=== PATIENT | female | born 1990 | race Two or more races ===

== ENCOUNTER 2020-02-16 17:29 | Emergency (ER) | payer SELFPAY ==
[2020-02-16 17:44] VITALS: BMI 29.9
[2020-02-16] MEDS ORDERED: SODIUM CHLORIDE 1,000 ML IV STA (18:25)
[2020-02-16] MEDS ORDERED: METOCLOPRAMIDE HCL INJECTION 10 MG/2 ML VIAL IVPB ONE (18:25)
--- NOTE | 2020-02-16 18:30 | PDOC ---
History of Present Illness - General Chief Complaint: Lightheaded Stated Complaint: DIZZY Time Seen by Provider: 02/16/20 18:06 Past History - Medical History Allergies/Adverse Reactions: Allergies Allergy/AdvReac Type Severity Reaction Status Date / Time No Known Allergies Allergy Verified 02/16/20 17:40 Home Medications: Ambulatory Orders Amox-Tr/K Cl [Augmentin - 875Mg Tablet] 1 tab PO BID #20 tablet 02/16/20 Fluticasone Prop 0.05% Nasal [Flonase -] 1 - 2 spray NS DAILY #1 spray.pump 02/16/20 Ibuprofen 600 mg PO Q6H #30 tablet 02/16/20 Meclizine HCl 25 mg PO TID #21 tablet 02/16/20 Oxymetazoline 0.05% Nasal Soln [Afrin -] 2 spray NS BID #1 bottle 02/16/20 COPD: No - Reproductive History Is Patient Now?: No - Immunization History Immunization Up to Date: No - Psycho-Social/Smoking History Smoking History: Never smoked Have you smoked in the past 12 months: No Information on smoking cessation initiated: No - Substance Abuse Hx (Audit-C & DAST Scrn) How often the patient has a drink containing alcohol: Never Score: In Men: 4 or > Positive; In Women: 3 or > Positive: 0 Screen Result (Pos requires Nsg. Audit-10AR): Negative In the last yr the pt used illegal drug/Rx for NonMed reason: No Score: Yes response is considered Positive: 0 Screen Result (Positive result requires Nsg. DAST-10): Negative Review of Systems - Review of Systems Able to Perform ROS?: Yes Comments:: 02/16/20 21:52 CONSTITUTIONAL: Absent: fever, chills, diaphoresis, generalized weakness, malaise, loss of a ppetite HEENT: Absent: rhinorrhea, nasal congestion, throat pain, throat swelling, difficulty swallowing, mouth swelling, ear pain, eye pain, visual Changes CARDIOVASCULAR: Absent: chest pain, loss of consciousness, palpitations, irregular heart rate, peripheral edema RESPIRATORY: Absent: cough, shortness of breath, dyspnea with exertion, orthopnea, wheezing, stridor, hemoptysis GASTROINTESTINAL: Absent: abdominal pain, abdominal distension, nausea, vomiting, diarrhea, constipation, melena, hematochezia GENITOURINARY: Absent: dysuria, frequency, urgency, hesitancy, hematuria, flank pain, genital pain MUSCULOSKELETAL: Absent: myalgia, arthralgia, joint swelling SKIN: Absent: rash, itching, pallor HEMATOLOGIC/IMMUNOLOGIC: Absent: easy bleeding, easy bruising, lymphadenopathy, frequent infections ENDOCRINE: Absent: unexplained weight gain, unexplained weight loss, heat intolerance, cold intolerance NEUROLOGIC: Absent: headache, focal weakness or paresthesias, dizziness, unsteady gait, seizure, mental status changes, bladder or bowel incontinence PSYCHIATRIC: Absent: anxiety, depression, suicidal or homicidal ideation, hallucinations. Is the patient limited Turkish proficient: No *Physical Exam - Vital Signs Last Vital Signs Temp Pulse Resp BP Pulse Ox 98.8 F 88 18 155/94 99 02/16/20 17:40 02/16/20 17:40 02/16/20 17:40 02/16/20 17:40 02/16/20 17:40 - Physical Exam 02/16/20 21:52 GENERAL: Well developed, well nourished. Awake and alert. No acute distress. HEENT: Normocephalic, atraumatic. PERRLA, EOMI. No conjunctival pallor. Sclera are non- icteric. Moist mucous membranes. Oropharynx is clear. NECK: Supple. Full ROM. No JVD. Carotid pulses 2+ and symmetric, without bruits. No thyromegaly. No lymphadenopathy. CARDIOVASCULAR: Regular rate and rhythm. No murmurs, rubs, or gallops. Distal pulses are 2+ and symmetric. PULMONARY: No evidence of respiratory distress. Lungs clear to auscultation bilaterally. No wheezing, rales or rhonchi. ABDOMINAL: Soft. Non-tender. Non-distended. No rebound or guarding. No organomegaly. Normoactive bowel sounds. MUSCULOSKELETAL Normal range of motion at all joints. No bony deformities or tenderness. No CVA tenderness. EXTREMITIES: No cyanosis. No clubbing. No edema. No calf tenderness. SKIN: Warm and dry. Normal capillary refill. No rashes. No jaundice. NEUROLOGICAL: Alert, awake, appropriate. Cranial nerves 2-12 intact. No deficits to light touch and temperature in face, upper extremities and lower extremities. No motor deficits in the in face, upper extremities and lower extremities. Normoreflexic in the upper and lower extremities. Normal speech. Toes are down-going bilaterally. Gait is normal without ataxia. PSYCHIATRIC: Cooperative. Good eye contact. Appropriate mood and affect. ED Treatment Course - LABORATORY CBC & Chemistry Diagram: 02/16/20 18:41 02/16/20 18:41 Discharge - Discharge Information Problems reviewed: Yes Clinical Impression/Diagnosis: Dizziness Sinusitis Qualifiers: Sinusitis location: unspecified location Chronicity: acute Recurrence: not specified as recurrent Qualified Code(s): J01.90 - Acute sinusitis, unspecified Condition: Stable Disposition: HOME - Admission No - Additional Discharge Information Prescriptions: Oxymetazoline 0.05% Nasal Soln [Afrin -] 2 spray NS BID #1 bottle Amox-Tr/K Cl [Augmentin - 875Mg Tablet] 1 tab PO BID #20 tablet Fluticasone Prop 0.05% Nasal [Flonase -] 1 - 2 spray NS DAILY #1 spray.pump Ibuprofen 600 mg PO Q6H #30 tablet Meclizine HCl 25 mg PO TID #21 tablet - Follow up/Referral Referrals: Joni Benson MD [Staff Physician] - - Patient Discharge Instructions Patient Printed Discharge Instructions: DI for Sinusitis, DI for Dizziness- Nonvertigo Additional Instructions: Your seen today for your dizziness and lightheadedness. Your CT scan shows that you have a sinus infection. This is most likely contributing to your pain and dizziness. Please take the antibiotics, Augmentin as directed. Finish the entire dose even if you feel better. Please take the Afrin for the next 2 days to help with decongestion. Do not use it past 2 days as this can cause rebound congestion. Please use the Flonase spray along with the Afrin spray to also help with decongestion. This is a nasal steroid. You may take the meclizine as needed for dizziness. Please follow-up with an ENT. A referral has been provided to you for further management of your symptoms. Return to the ER for worsening headache, dizziness, vomiting or if you have any changes in your symptoms. - Post Discharge Activity Work/Back to School Note: Back to Work
[2020-02-16] MEDS ORDERED: METOCLOPRAMIDE HCL INJECTION 10 MG/2 ML VIAL ONE (18:45)
[2020-02-16 19:32] LABS: BASO % 0.5 % (0-2.0); EOS % 3.1 % (0-4.5); HEMATOCRIT 44.5 % (32.4-45.2); HEMOGLOBIN 15.1 GM/dL (10.7-15.3); LYMPH % 31.2 % (8-40); MCH 29.4 pg (25.7-33.7); MCHC 33.8 g/dl (32.0-36.0); MEAN CELL VOLUME 86.9 fl (80-96); MEAN PLT VOLUME 9.3 fl (7.5-11.1); NEUT % 60.2 % (42.8-82.8); PLATELET COUNT 329 K/MM3 (134-434); RBC 5.12 M/mm3 (3.60-5.2); RDW 13.7 % (11.6-15.6); WHITE BLOOD COUNT 9.3 K/mm3 (4.0-10.0)
[2020-02-16 20:02] LABS: ALBUMIN 4.1 g/dl (3.4-5.0); BILIRUBIN,TOTAL 0.6 mg/dL (0.2-1); BLOOD UREA NITROGEN 11.5 mg/dL (7-18); CALCIUM 9.3 mg/dL (8.5-10.1); CREATININE 0.7 mg/dL (0.55-1.3); POTASSIUM 4.4 mmol/L (3.5-5.1); TOT PROT 8.6 g/dl (6.4-8.2)
[2020-02-16 20:08] LABS: URINE APPEARANCE CLEAR; URINE BILIRUBIN NEGATIVE (NEGATIVE); URINE COLOR YELLOW; URINE GLUCOSE (UA) NEGATIVE (NEGATIVE); URINE KETONE NEGATIVE (NEGATIVE); URINE LEUK ESTERASE NEGATIVE (NEGATIVE); URINE NITRITE NEGATIVE (NEGATIVE); URINE PROTEIN NEGATIVE (NEGATIVE); URINE UROBILINOGEN 0.2 mg/dL (0.2-1.0)
[2020-02-17 03:35] VITALS: BP 134/82; PULSE 80; TEMP 98.3
== END 2020-02-16 22:40 | disposition home or self-care (01) ==
LOC: JER 17:29
PROC: 3E033NZ Introduction of Analgesics, Hypnotics, Sedatives into Peripheral Vein, Percutaneous Approach (ICD-10-PCS; principal; 2020-02-16)
PROC: 3E033GC Introduction of Other Therapeutic Substance into Peripheral Vein, Percutaneous Approach (ICD-10-PCS; 2020-02-16)
PROC: 3E0337Z Introduction of Electrolytic and Water Balance Substance into Peripheral Vein, Percutaneous Approach (ICD-10-PCS; 2020-02-16)
DX: R42 Dizziness and giddiness (principal); J01.90 Acute sinusitis, unspecified
CPT/HCPCS: 36415; 70450-TC; 80053; 81003; 84703; 85025; 99285-25

== ENCOUNTER 2023-05-13 02:46 | Emergency (ER) | payer OTHER ==
[2023-05-13 03:03] VITALS: TEMP 98.5; BMI 28.3
[2023-05-13] MEDS ORDERED: DEXAMETHASONE LIQUID 0.5 MG/5 ML PO ONE (05:11)
[2023-05-13] MEDS ORDERED: ALBUTEROL SO4 2.5/IPRATROPIUM 0.5 INH SOL 3 ML VIAL.NEB. NEB ONE ×2 (05:11→05:28)
[2023-05-13] MEDS ORDERED: DEXAMETHASONE SOD PHOSPHATE 10 MG/1 ML VIAL ONE (05:28)
[2023-05-13 05:52] VITALS: BP 152/85; PULSE 100; RESP 16
== END 2023-05-13 06:18 | disposition home or self-care (01) ==
LOC: JER 02:46
PROC: 3E0F7GC Introduction of Other Therapeutic Substance into Respiratory Tract, Via Natural or Artificial Opening (ICD-10-PCS; principal; 2023-05-13)
DX: U07.1 COVID-19 (principal); R51.9 Headache, unspecified; R06.02 Shortness of breath; J32.9 Chronic sinusitis, unspecified
CPT/HCPCS: 0241U-QW; 71046-TC-FY; 94640; 99284-25